=== PATIENT | male | born 1980 | race Caucasian/White ===

== ENCOUNTER 2024-07-08 10:16 | Emergency (ER) | payer MEDICAID, SELFPAY ==
[2024-07-08 10:17] VITALS: BMI 25.2
--- NOTE | 2024-07-08 11:12 | XR_ITS ---
Examination: Foot, right, 3 views Technique: AP, oblique, lateral views foot, 3 views Date and time of exam: July 08, 2024 at 1137 hours INDICATIONS: Right foot pain beginning 2 days ago no trauma FINDINGS: Mild to moderate osteoarthritis first metatarsophalangeal joint Mild osteopenia. No fracture. No cortical bone destruction Mild osteoarthritis tibiotalar and intertarsal joints Tiny plantar posterior bony calcaneal spurs IMPRESSION: Osteoarthritis as above
--- NOTE | 2024-07-08 11:13 | EDNOTE_ITS ---
<Statement entered by Romina Michael MD - 07/08/24 17:45> As co-signing physician, I was present and available for consult prn. I concur with the plan and care as documented by the midlevel provider. Lower Extremity Injury RME/HPI General Chief Complaint: Ankle/Foot Injury Stated Complaint: R FOOT PAIN Time Seen by Provider: 07/08/24 11:13 Source: patient Arrival date/time: 07/08/24 10:16 44-year-old male with no known medical history presents to the emergency room with a chief complaint of pain and tenderness to the right great toe x 2 days Mode of arrival: ambulatory Limitations: no limitations Related Data Previous Rx's ?Medication ?Instructions ?Recorded cephalexin 500 mg capsule 500 mg PO BID #14 caps 05/14 sulfamethoxazole 800 1 tab PO BID #14 tabs mg-trimethoprim 160 mg tablet Allergies Allergy/AdvReac Type Severity Reaction Status Date / Time No Known Allergies Allergy Verified 07/08/24 10:17 Review of Systems Review of Systems Systems Reviewed: All systems reviewed, normal except as documented Constitutional Constitutional: Reports system reviewed and no additional complaints, except as documented, Denies fatigue, Denies fever(s), Denies headache(s) and Denies weakness Eyes Eyes: Reports system reviewed and no additional complaints, except as documented, Denies blurry vision and Denies change in vision ENT Ears, Nose, Mouth, and Throat: Reports system reviewed and no additional complaints, except as documented, Denies otalgia, Denies headache(s), Denies nasal congestion, Denies throat swelling and Denies vertigo Cardiovascular Cardiovascular: Reports system reviewed and no additional complaints, except as documented, Denies chest pain, Denies dyspnea and Denies dyspnea on exertion Respiratory Respiratory: Reports system reviewed and no additional complaints, except as documented, Denies chest congestion, Denies cough, Denies dyspnea, Denies dyspnea on exertion and Denies wheezing Gastrointestinal Gastrointestinal: Reports system reviewed and no additional complaints, except as documented, Denies abdominal pain, Denies cramping, Denies nausea and Denies vomiting Genitourinary Genitourinary: Reports system reviewed and no additional complaints, except as documented, Denies dysuria and Denies hematuria Musculoskeletal Musculoskeletal: Reports system reviewed and no additional complaints, except as documented, Reports arthralgias, Denies back pain, Reports joint swelling and Reports limited range of motion Integumentary/Breasts Skin/Breast: Reports system reviewed and no additional complaints, except as documented and Denies wounds Neurologic Neurologic: Reports system reviewed and no additional complaints, except as documented, Denies confusion, Denies headache(s), Denies lack of coordination, Denies vertigo and Denies weakness Psychiatric Psychiatric: Reports system reviewed and no additional complaints, except as documented, Denies anxiety, Denies confusion, Denies depression, Denies paranoia, Denies suicidal ideation and Denies tactile hallucinations Endocrine Endocrine: Reports system reviewed and no additional complaints, except as documented and Denies fatigue Hematologic/Lymphatic Hematologic/Lymphatic: Reports system reviewed and no additional complaints, except as documented and Denies lymphadenopathy Allergic/Immunologic Allergic/Immunologic: Reports system reviewed and no additional complaints, except as documented, Denies throat swelling, Denies urticaria and Denies wheezing Past Medical History Past Medical History CARDIAC: Negative Cardiac Disorders or Congestive Heart Failure RESPIRATORY: Negative Chronic Obstructive Pulmonary Disease (COPD) or Asthma GENITOURINARY: Negative Renal Disease ENDOCRINE: Negative Diabetes Mellitus Type 1 or Diabetes Mellitus Type 2 HEMATOLOGIC: Negative Sickle Cell Disease Social History SMOKING STATUS: Never smoker ED Exam General Limitations: Present no limitations General appearance: Present alert and in no apparent distress Head Head exam: Present atraumatic Eye Eye exam: Present normal appearance, PERRL and EOMI ENT ENT exam: Present normal exam, normal oropharynx and mucous membranes moist Neck Neck exam: Present normal inspection, full ROM and trachea midline Chest Chest inspection: Present normal inspection and symmetric chest wall rise Respiratory Respiratory exam: Present normal lung sounds bilaterally Cardiovascular Cardiovascular exam: Present regular rate, normal rhythm and normal heart sounds Abdominal Exam Abdominal exam: Present soft and normal bowel sounds Extremities Exam Extremities exam: Present normal inspection and full ROM Expanded Lower Extremity Exam Hip/Pelvis exam: Present normal inspection Upper leg exam: Present normal inspection Knee exam: Present normal inspection Lower leg exam: Present normal inspection Ankle exam: Present normal inspection Foot/toe exam: Present tenderness and swelling Neurovascular/Tendon exam: Present normal capillary refill Gait: observed and limited by pain Back Exam Back exam: Present normal inspection and full ROM Neurological Exam Neurological exam: Present alert, oriented X3 and CN II-XII intact Psychiatric Psychiatric exam: Present normal affect and normal mood Skin Skin exam: Present warm, dry, intact and normal color Course Quality Measures none Orders Category Date Time Status XR foot comp RT min 3V Stat Exams 07/08/24 11:12 Completed CBC Stat Lab 07/08/24 11:19 Completed CMP [Comprehensive Metabolic Panel] Stat Lab 07/08/24 11:19 Completed Uric Acid Stat Lab 07/08/24 11:19 Completed Vital Signs Vital signs: Vital Signs Temperature 98.0 F 07/08/24 11:16 Pulse Rate 98 07/08/24 11:16 Respiratory Rate 19 07/08/24 11:16 Blood Pressure 127/76 07/08/24 11:16 Pulse Oximetry (%) 696 H 07/08/24 11:16 Oxygen Delivery Method Room Air 07/08/24 11:16 Extremity Injury, Lower MDM Narrative MDM Narrative:: 44-year-old male with no known medical history presents to the emergency room with a chief complaint of pain and tenderness to the right great toe x 2 days Patient is hemodynamically stable and in no apparent distress Physical examination shows pain and tenderness to the patient's right toe. There is no bruising there is no erythema there is no warmth to the touch. Patient does not have any medical history of gout. Patient denies any trauma or fall. X-ray of the right foot was completed and was negative for any acute fracture or dislocation Patient eloped prior to final disposition Patient data External records reviewed:: [facility] previous records Clinical information provided by:: patient Social determinants that could affect healthcare access:: none Patient has the following chronic illnesses:: No chronic illness How is presenting disease/condition affected by chronic disease/condition?: no chronic disease Evaluation data The following diagnostics were reviewed and interpreted by me:: lab results and radiology exam(s) Lab and/or radiology exams considered but not ordered:: Labs and radiology exams considered and ordered Interpretation Summary: X-ray of the right foot-FINDINGS: Mild to moderate osteoarthritis first metatarsophalangeal joint Mild osteopenia. No fracture. No cortical bone destruction Mild osteoarthritis tibiotalar and intertarsal joints Tiny plantar posterior bony calcaneal spurs IMPRESSION: Osteoarthritis as above Medications / Prescriptions Medications or Prescriptions considered but not ordered:: Medication not given Medication administrations:: Medication not given Consultations Consultation(s) initiated? (list below): No Diagnosis Extremity Injury, Lower Differential Diagnosis: other (Right toe fracture/right toe sprain) Most likely diagnosis given after review of the tests above:: Right toe sprain Admission Indicated Admission indicated?: not indicated Admission Request Was there a request for admission?: No Disposition Plan Disposition Plan: Discharge Discharge Attestation Discharge Attestation: The patient and all family members were given an opportunity to ask questions and understood the discharge instructions. Discharge instructions specifically effects, indications for sooner follow up or return to the emergency department, and the expected course of current diagnosis. Patient condition: Stable Discharge Plan Plan Patient Disposition: HOME (Self Care) Disposition Comment: Stable Prescriptions/Referrals Prescriptions/Med Rec: No Action sulfamethoxazole-trimethoprim 800-160 mg tablet 1 tab PO BID Qty: 14 0RF cephalexin 500 mg capsule 500 mg PO BID Qty: 14 0RF Referrals: Maximilian Sharp MD [Primary Care Provider] - In 1 week Problem List Clinical Impression: Osteoarthritis Patient/Caregiver Discharge Instructions Education Materials: Living with Osteoarthritis, ED Osteoarthritis Additional Instructions: Please follow-up with your primary care provider in the next 24 to 48 hours. Your blood work was negative for gout or any other infection in the bone. The x-ray of your foot shows arthritis of your foot. Please follow-up with your primary care provider for further management For any evidence of worsening signs or symptoms return to the emergency room immediately Print Language: Zambian Stand Alone Forms: Daniela Award Info., Patient Portal Info Letter ANA/HILARIO Supervising Physician ANA/HILARIO Supervising Physician: Dr. MICHAEL
[2024-07-08 11:16] VITALS: BP 127/76; PULSE 98; RESP 19; TEMP 36.7; O2SAT 696
[2024-07-08 11:45] LABS: Basophils % (Auto) 1 % (0-2.5); Eosinophils # (Auto) 0.2 Thou/mm3 (0.0-0.5); Eosinophils % (Auto) 3 % (0-10); Hematocrit 40.3 % (41.0-53.0); Hemoglobin 12.5 g/dL (13.5-16.0); Immature Granulocytes % (Auto) 0 % (0-0); Immature Granulocytes Auto 0.02 Thou/mm3 (0.00-0.00); Lymphocytes # (Auto) 1.6 Thou/mm3 (1.0-4.8); Lymphocytes % (Auto) 30 % (10-50); Mean Corpuscular Hemoglobin 29.3 pg (25.0-35.0); Mean Corpuscular Volume 94 fL (80-100); Monocytes # (Auto) 0.5 Thou/mm3 (0.0-0.8); Monocytes % (Auto) 10 % (0-12); Neutrophils % (Auto) 56 % (37-80); Nucleated Red Blood Cell % 0 /100 WBC (0); Platelet Count 227 Thou/mm3 (140-440); RDW Standard Deviation 45.1 fL (35.1-43.9); Red Blood Count 4.27 Miln/mm3 (4.50-5.90); White Blood Count 5.3 Thou/mm3 (3.8-10.6)
[2024-07-08 11:54] LABS: Alanine Aminotransferase 13 U/L (10-49); Albumin, Serum 4.3 gm/dL (3.5-5.0); Albumin/Globulin Ratio 1.5 (1.2-2.2); Alkaline Phosphatase 85 U/L (46-116); Anion Gap 6 (7-16); Aspartate Amino Transferase 20 U/L (0-34); BUN/Creatinine Ratio 10 Ratio (12-20); Bilirubin,Total 0.9 mg/dL (0.3-1.2); Blood Urea Nitrogen 11 mg/dL (9-23); Calcium 9.3 mg/dL (8.3-10.6); Calcium (Corrected) 9.3 mg/dL (8.5-10.1); Carbon Dioxide 28.3 mMol/L (20.0-31.0); Chloride 110 mMol/L (98-107); Creatinine (Component) 1.1 mg/dL (0.6-1.3); Estimated Creatinine Clearance 113.9 mL/min (>60); Globulin 2.8 gm/dL (2.3-3.5); Glucose 106 mg/dL (74-106); Osmolality,Calculated 286 (275-295); Potassium 4.4 mMol/L (3.4-5.1); Sodium 144 mMol/L (136-145); Total Protein 7.1 gm/dL (5.7-8.2); Uric Acid 6.1 mg/dL (3.7-9.2); eGFR > 60 See Note
--- NOTE | 2024-07-08 13:45 | PC.NURSE ---
no answer x1 at 1344. checked outside and lobby.
--- NOTE | 2024-07-08 14:26 | PC.NURSE ---
no answer x2 at [id number]
--- NOTE | 2024-07-08 15:20 | PC.NURSE ---
no answer x 3 at 1520 checked outside and lobby
== END 2024-07-08 15:21 | disposition home or self-care (01) ==
PROVIDERS: Nurse Practitioner Family; Emergency Provider Emergency Medicine; PCP Family Medicine
DX: M19.071 Primary osteoarthritis, right ankle and foot (principal)
CPT/HCPCS: 36415; 73630; 80053; 84550; 85025; 99283

== ENCOUNTER 2025-01-02 21:31 | Emergency (ER) | payer MEDICAID, SELFPAY ==
[2025-01-02 21:32] VITALS: BMI 26.4
[2025-01-02 22:23] VITALS: BP 133/80; PULSE 83; RESP 20; TEMP 36.8; O2SAT 98
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
[2025-01-02 23:30] VITALS: BP 127/81; PULSE 85; RESP 18; O2SAT 97
--- NOTE | 2025-01-02 23:46 | PC.NURSE ---
spoke with kike at [facility], patient information faxed over for review.
[2025-01-02 23:49] LABS: Basophils # (Auto) 0.0 Thou/mm3 (0.0-0.2); Basophils % (Auto) 1 % (0-2.5); Eosinophils # (Auto) 0.2 Thou/mm3 (0.0-0.5); Eosinophils % (Auto) 3 % (0-10); Hematocrit 36.3 % (41.0-53.0); Hemoglobin 11.4 g/dL (13.5-16.0); Immature Granulocytes Auto 0.01 Thou/mm3 (0.00-0.00); Lymphocytes # (Auto) 1.9 Thou/mm3 (1.0-4.8); Lymphocytes % (Auto) 32 % (10-50); Mean Corpuscular HGB Conc 31.4 g/dl (31.0-37.0); Mean Corpuscular Hemoglobin 28.8 pg (25.0-35.0); Mean Corpuscular Volume 92 fL (80-100); Monocytes # (Auto) 0.6 Thou/mm3 (0.0-0.8); Monocytes % (Auto) 10 % (0-12); Neutrophils # (Auto) 3.2 Thou/mm3 (1.8-7.7); Neutrophils % (Auto) 53 % (37-80); Nucleated Red Blood Cell # 0.00 Thou/mm3 (0.00-0.00); Nucleated Red Blood Cell % 0 /100 WBC (0); Platelet Count 210 Thou/mm3 (140-440); RDW Standard Deviation 43.8 fL (35.1-43.9); Red Blood Count 3.96 Miln/mm3 (4.50-5.90); White Blood Count 6.1 Thou/mm3 (3.8-10.6)
[2025-01-03 00:06] LABS: INR 1.0 (0.9-1.3); Partial Thromboplastin Time 24.2 Seconds (22.0-36.0); Prothrombin Time 10.4 Seconds (9.0-12.2)
--- NOTE | 2025-01-03 00:09 | PC.NURSE ---
0006,[facility],REPORT TO [phone]
[2025-01-03 00:12] LABS: Alanine Aminotransferase 18 U/L (10-49); Albumin, Serum 4.2 gm/dL (3.5-5.0); Albumin/Globulin Ratio 1.7 (1.2-2.2); Alcohol, Blood Medical < 3.0 mg/dL (0-10.0); Alkaline Phosphatase 82 U/L (46-116); Anion Gap 10 (7-16); Aspartate Amino Transferase 26 U/L (0-34); BUN/Creatinine Ratio 10 Ratio (12-20); Bilirubin,Total 1.0 mg/dL (0.3-1.2); Blood Urea Nitrogen 12 mg/dL (9-23); Calcium 8.9 mg/dL (8.3-10.6); Calcium (Corrected) 8.9 mg/dL (8.5-10.1); Carbon Dioxide 28.0 mMol/L (20.0-31.0); Chloride 106 mMol/L (98-107); Creatinine (Component) 1.2 mg/dL (0.6-1.3); Estimated Creatinine Clearance 104.4 mL/min (>60); Globulin 2.5 gm/dL (2.3-3.5); Glucose 130 mg/dL (74-106); Osmolality,Calculated 288 (275-295); Potassium 3.6 mMol/L (3.4-5.1); Sodium 144 mMol/L (136-145); Total Protein 6.7 gm/dL (5.7-8.2); eGFR > 60 See Note
[2025-01-03 00:31] VITALS: BP 120/71; PULSE 76; RESP 14; O2SAT 100
--- NOTE | 2025-01-03 01:43 | PC.NURSE ---
REPORT GIVEN TO KANE AT [facility]
== END 2025-01-03 01:46 | disposition short-term general hospital (02) ==
PROVIDERS: Physician Assistant; Emergency Provider Emergency Medicine; PCP Family Medicine
DX: S12.400A Unspecified displaced fracture of fifth cervical vertebra, initial encounter for closed fracture (principal); S09.90XA Unspecified injury of head, initial encounter; W22.8XXA Striking against or struck by other objects, initial encounter; Y93.55 Activity, bike riding
CPT/HCPCS: 36415; 70450; 72125; 80053; 80320; 85025; 85610; 85730; 99284; G0480

== ENCOUNTER 2025-01-11 07:40 | Emergency (ER) | payer MEDICAID, SELFPAY ==
[2025-01-11 07:41] VITALS: BMI 26.4
[2025-01-11 07:54] VITALS: BP 135/82; PULSE 75; RESP 17; TEMP 37; O2SAT 99
--- NOTE | 2025-01-11 08:00 | PC.NURSE ---
PT GIVEN HOMELESSNESS RESOURCE TO PT AT THIS TIME.
--- NOTE | 2025-01-11 08:13 | EDNOTE_ITS ---
<Statement entered by Romina Michael MD - 01/26/25 14:16> As co-signing physician, I was present and available for consult prn. I concur with the plan and care as documented by the midlevel provider. ED Skin Abcess FB-RME/HPI General Chief complaint: General Adult/Misc Complain Stated complaint: KEEP FALLING ASLEEP EVERY TIME I SIT DOWN Time Seen by Provider: 01/11/25 07:48 Arrival date/time: 01/11/25 07:40 This is a 44-year-old male that comes into the emergency room with complaints of a red spot to his left lateral neck. Patient also has what appears to be a chronic ulceration to his left index finger. Patient currently wearing an c- collar. Patient states he was told there were for 8 to 12 weeks. Patient has no complaints of his neck denies any new injuries. He patient is homeless. Related Data Previous Rx's ?Medication ?Instructions ?Recorded cephalexin 500 mg capsule 500 mg PO BID #14 caps 05/14 sulfamethoxazole 800 1 tab PO BID #14 tabs mg-trimethoprim 160 mg tablet ibuprofen 800 mg tablet 800 mg PO Q6H PRN pain #20 t abs 01/11/25 Allergies Allergy/AdvReac Type Severity Reaction Status Date / Time No Known Allergies Allergy Verified 01/11/25 07:47 Review of Systems Review of Systems Systems Reviewed: All systems reviewed, normal except as documented Past Medical History Past Medical History CARDIAC: Negative Cardiac Disorders or Congestive Heart Failure RESPIRATORY: Negative Chronic Obstructive Pulmonary Disease (COPD) or Asthma GENITOURINARY: Negative Renal Disease ENDOCRINE: Negative Diabetes Mellitus Type 1 or Diabetes Mellitus Type 2 HEMATOLOGIC: Negative Sickle Cell Disease Social History SMOKING STATUS: Never smoker ED Exam Narrative Physical exam: VITAL SIGNS: Reviewed. GENERAL APPEARANCE: Alert and interactive, follows commands, no acute distress HEAD AND FACE: Non-traumatic. ENT: PERRL, conjuctiva pink and clear, eyelid no trauma, Mucous membrane moist. NECK: Supple, nontender, no nuchal rigidity. CHEST: No tenderness, no crepitus, no paradoxical movement, no retractions. LUNGS: breathing even and unlabored HEART: Regular rate, cap refill less than 2 seconds ABDOMEN: Soft, nondistended, no guarding, nontender, no rebound, no masses, NEUROLOGICAL: Gross motor function intact sensory function intact, Appropriate for age. MUSCULOSKELETAL: low back nontender, full range of motion. no midline tenderness, no meningismus, no step offs EXTREMITIES: No redness no swelling no skin breakdown on bilateral foot and leg. Distal neurovascular status intact bilateral foot SKIN: Color pink, dry, patient has an area approximately 1 cm x 1 cm to his left anterior lateral neck that is erythemic and slightly raised. Surrounding tissue slightly erythemic. No fluctuance. Mild induration of the skin. Course Quality Measures none Orders Category Date Time Status Acetaminophen Tab [Tylenol ES Tab] Med 01/11/25 08:19 Discontinued 1,000 mg PO X1 ONE Doxycycline [Vibramycin] Med 01/11/25 08:19 Discontinued 100 mg PO X1 ONE Ibuprofen Tab [Motrin Tab] Med 01/11/25 08:19 Discontinued 800 mg PO X1 ONE Referral Isotope Technologist NOW 01/11/25 07:48 Completed Vital Signs Vital signs: Vital Signs Temperature 98.6 F 01/11/25 07:54 Pulse Rate 75 01/11/25 07:54 Respiratory Rate 17 01/11/25 07:54 Blood Pressure 135/82 H 01/11/25 07:54 Pulse Oximetry (%) 99 01/11/25 07:54 Oxygen Delivery Method Room Air 01/11/25 07:54 Skin / Abscess / Foreign Body MDM Narrative MDM Narrative:: I spoke to patient at length. Patient having no issues with his neck or no new injuries. Patient denies any falls. Patient complains of a chronic ulceration to his index finger and also a small area to his left anterior neck that appears to look like early cellulitis. Possible folliculitis. Will treat with doxycycline. Patient told to follow-up with his primary doctor in 1 to 2 days. [place] to emergency room symptoms change or worsen. Dragon dictation: Although this document has been carefully reviewed, there may still be some phonetic and other typographical errors. These errors are purely grammatical due to imperfections in the software program and should not be construed in any way to compromise the substance of the patient's medical care during this visit. Patient data External records reviewed:: [facility] previous records Clinical information provided by:: patient Social determinants that could affect healthcare access:: none Patient has the following chronic illnesses:: None How is presenting disease/condition affected by chronic disease/condition?: uneffected by Evaluation data The following diagnostics were reviewed and interpreted by me:: other (specify) (None) Lab and/or radiology exams considered but not ordered:: None Interpretation Summary: See note Medications / Prescriptions Medications or Prescriptions considered but not ordered:: None Medication administrations:: Medication Administration History Discontinued Medications Acetaminophen (Acetaminophen 500 Mg Tablet) 1,000 mg PO X1 ONE Stop: 01/11/25 08:20 Last Admin: 01/11/25 08:44 Dose: 1,000 mg Documented By: RADHA Doxycycline Hyclate (Doxycycline 100 Mg Tablet) 100 mg PO X1 ONE Stop: 01/11/25 08:20 Last Admin: 01/11/25 08:44 Dose: 100 mg Documented By: RADHA Ibuprofen (Ibuprofen Tab 400 Mg Tablet) 800 mg PO X1 ONE Stop: 01/11/25 08:20 Last Admin: 01/11/25 08:44 Dose: 800 mg Documented By: RADHA See [facility] Consultations Consultation(s) initiated? (list below): No Diagnosis Skin/Abscess Differential Diagnosis: abscess of skin or subcutaneous tissue, allergic reaction to drug, cellulitis and insect bites Most likely diagnosis given after review of the tests above:: Cellulitis Admission Indicated Admission indicated?: not indicated Admission Request Was there a request for admission?: No Disposition Plan Disposition Plan: Discharge Discharge Attestation Discharge Attestation: The patient and all family members were given an opportunity to ask questions and understood the discharge instructions. Discharge instructions specifically effects, indications for sooner follow up or return to the emergency department, and the expected course of current diagnosis. Patient condition: Stable Discharge Plan Plan Patient Disposition: HOME (Self Care) Patient condition on transfer: Stable Prescriptions/Referrals Prescriptions/Med Rec: New ibuprofen 800 mg tablet 800 mg PO Q6H PRN (Reason: pain) Qty: 20 0RF No Action sulfamethoxazole-trimethoprim 800-160 mg tablet 1 tab PO BID Qty: 14 0RF cephalexin 500 mg capsule 500 mg PO BID Qty: 14 0RF Referrals: No Primary/Family,Physician [Primary Care Provider] - In 1 week Problem List Clinical Impression: Cellulitis Patient/Caregiver Discharge Instructions Discharge Activity: activity as tolerated Education Materials: ED Cellulitis Additional Instructions: Follow up with primary provider in 1-2 days. Come back to ED if symptoms change or worsen Print Language: Malian Stand Alone Forms: Daniela Award Info., Patient Portal Info Letter PA/RIG BUILDER Supervising Physician PA/RIG BUILDER Supervising Physician: thi
[2025-01-11] MEDS: ACETAMINOPHEN 500 MG TABLET 1000 MG PO (08:44)
[2025-01-11] MEDS: DOXYCYCLINE 100 MG TABLET PO (08:44)
[2025-01-11] MEDS: IBUPROFEN TAB 400 MG TABLET 800 MG PO (08:44)
== END 2025-01-11 09:00 | disposition home or self-care (01) ==
PROVIDERS: Emergency Provider Emergency Medicine
DX: L03.012 Cellulitis of left finger (principal)
CPT/HCPCS: 99283; A9270

== ENCOUNTER 2025-02-04 18:40 | Emergency (ER) | payer MEDICAID, SELFPAY ==
[2025-02-04 19:09] VITALS: BP 142/83; PULSE 88; RESP 18; TEMP 36.7; O2SAT 96
--- NOTE | 2025-02-04 19:14 | PD.EDNECK ---
ED Neck Injury Pain RME/HPI General Chief Complaint: Neck Pain/Injury Stated Complaint: REQUESTING BRACE, WAS SEEN 1WK AGO, LOST HIS BRACE Time Seen by Provider: 02/04/25 19:10 Arrival date/time: 02/04/25 18:40 44M with history of drug use presents to ED with needing neck brace after he lost it. Patient was here several weeks ago with diagnosis of cervial fx. Patient was transferred to [facility] initially, where an MRI was done, and patient was given a neck brace and discharged. No surgical intervention was done. Patient has no current complaints. Limitations: no limitations Related Data Previous Rx's ?Medication ?Instructions ?Recorded cephalexin 500 mg capsule 500 mg PO BID #14 caps 05/14/23 sulfamethoxazole 800 1 tab PO BID #14 tabs 05/14/23 mg-trimethoprim 160 mg tablet ibuprofen 800 mg tablet 800 mg PO Q6H PRN pain #20 tabs 01/11/25 Allergies Allergy/AdvReac Type Severity Reaction Status Date / Time No Known Allergies Allergy Verified 02/04/25 18:44 Review of Systems Review of Systems Systems Reviewed: All systems reviewed, normal except as documented Past Medical History Past Medical History CARDIAC: Negative Cardiac Disorders or Congestive Heart Failure RESPIRATORY: Negative Chronic Obstructive Pulmonary Disease (COPD) or Asthma GENITOURINARY: Negative Renal Disease ENDOCRINE: Negative Diabetes Mellitus Type 1 or Diabetes Mellitus Type 2 HEMATOLOGIC: Negative Sickle Cell Disease Social History SMOKING STATUS: Never smoker ED Exam General Limitations: Present no limitations General appearance: Present alert and in no apparent distress Head Head exam: Present atraumatic Chest Chest inspection: Present normal inspection and symmetric chest wall rise Neurological Exam Neurological exam: Present alert and oriented X3 Psychiatric Psychiatric exam: Present normal affect and normal mood Skin Skin exam: Present warm, dry, intact and normal color Course Quality Measures none Orders Category Date Time Status Rigid cervical collar X1 Care 02/04/25 19:05 Active Vital Signs Vital signs: Vital Signs Temperature 98.0 F 02/04/25 19:09 Pulse Rate 88 02/04/25 19:09 Respiratory Rate 18 02/04/25 19:09 Blood Pressure 142/83 H 02/04/25 19:09 Pulse Oximetry (%) 96 02/04/25 19:09 Oxygen Delivery Method Room Air 02/04/25 19:09 O2 at 96% on RA and WNLs Neck Pain MDM Narrative MDM Narrative:: 44M with history of drug use presents to ED with needing neck brace after he lost it. Patient was here several weeks ago with diagnosis of cervial fx. Patient was transferred to [facility] initially, where an MRI was done, and patient was given a neck brace and discharged. No surgical intervention was done. Patient has no current complaints. Physical exam reveals normal speech and gait. ROM of extremities normal. Patient is afebrile, calm, and alert. Brace and business and financial counsel given. Patient data External records reviewed:: [facility] previous records Clinical information provided by:: patient Social determinants that could affect healthcare access:: substance use Patient has the following chronic illnesses:: drug use How is presenting disease/condition affected by chronic disease/condition?: exacerbated by Evaluation data The following diagnostics were reviewed and interpreted by me:: other (specify) (none) Lab and/or radiology exams considered but not ordered:: not ordered Interpretation Summary: n/a Medications / Prescriptions Medications or Prescriptions considered but not ordered:: not ordered Medication administrations:: n/a Consultations Consultation(s) initiated? (list below): No Diagnosis Neck Differential Diagnosis: disc disorder of cervical region, whiplash injury to neck, closed subluxation of cervical spine, fracture of cervical spine without lesion of spinal cord, cervical radiculopathy, vertebral artery dissection, torticollis, cervical spondylosis and strain of neck muscle Most likely diagnosis given after review of the tests above:: cervical fx Admission Indicated Admission indicated?: not indicated Admission Request Was there a request for admission?: No Disposition Plan Disposition Plan: Discharge Discharge Attestation Discharge Attestation: The patient and all family members were given an opportunity to ask questions and understood the discharge instructions. Discharge instructions specifically effects, indications for sooner follow up or return to the emergency department, and the expected course of current diagnosis. Patient condition: Stable Discharge Plan Plan Patient Disposition: HOME (Self Care) Discharge Disposition comment: Stable Prescriptions/Referrals Prescriptions/Med Rec: No Action sulfamethoxazole-trimethoprim 800-160 mg tablet 1 tab PO BID Qty: 14 0RF cephalexin 500 mg capsule 500 mg PO BID Qty: 14 0RF ibuprofen 800 mg tablet 800 mg PO Q6H PRN (Reason: pain) Qty: 20 0RF Problem List Clinical Impression: Fracture of cervical spine without lesion of spinal cord Patient/Caregiver Discharge Instructions Education Materials: Fx Neck Spine Additional Instructions: Please follow-up with PCP within 24-48 hours and return immediately if symptoms worsen. Follow-up as instructed with neurosurgeon/PCP. Print Language: Norwegian Stand Alone Forms: Patient Portal Info Letter PA/CHART COLLECTOR Supervising Physician PA/CHART COLLECTOR Supervising Physician: Dr. Macias
== END 2025-02-04 19:15 | disposition home or self-care (01) ==
LOC: SERX 19:36
PROVIDERS: Emergency Provider Emergency Medicine
DX: S12.9XXA Fracture of neck, unspecified, initial encounter (principal); X58.XXXA Exposure to other specified factors, initial encounter
CPT/HCPCS: 99281

== ENCOUNTER 2025-03-20 19:31 | Emergency (ER) | payer MEDICAID, SELFPAY ==
[2025-03-20 19:32] VITALS: BMI 25.8
[2025-03-20 20:17] VITALS: BP 137/86; PULSE 83; RESP 18; TEMP 36.7; O2SAT 98
--- NOTE | 2025-03-20 20:27 | PD.EDSKIN ---
ED Skin Abcess FB-RME/HPI General Chief complaint: General Adult/Misc Complain Stated complaint: SPIDER BITE R LEG Time Seen by Provider: 03/20/25 20:22 Arrival date/time: 03/20/25 19:31 45M with history of drug use presents to ED with R insect/spider bite. It is painful, not itchy. Limitations: no limitations Related Data Previous Rx's ?Medication ?Instructions ?Recorded cephalexin 500 mg capsule 500 mg PO BID #14 caps 05/14/23 sulfamethoxazole 800 1 tab PO BID #14 tabs 05/14/23 mg-trimethoprim 160 mg tablet ibuprofen 800 mg tablet 800 mg PO Q6H PRN pain #20 tabs 01/11/25 sulfamethoxazole 800 1 tab PO BID 5 days #10 tabs 03/20/25 mg-trimethoprim 160 mg tablet (Bactrim DS) Allergies Allergy/AdvReac Type Severity Reaction Status Date / Time No Known Allergies Allergy Verified 03/20/25 19:36 Review of Systems Review of Systems Systems Reviewed: All systems reviewed, normal except as documented Integumentary/Breasts Skin/Breast: Reports as per HPI and Reports skin pain Past Medical History Past Medical History CARDIAC: Negative Cardiac Disorders or Congestive Heart Failure RESPIRATORY: Negative Chronic Obstructive Pulmonary Disease (COPD) or Asthma GENITOURINARY: Negative Renal Disease ENDOCRINE: Negative Diabetes Mellitus Type 1 or Diabetes Mellitus Type 2 HEMATOLOGIC: Negative Sickle Cell Disease Social History SMOKING STATUS: Never smoker ED Exam General Limitations: Present no limitations General appearance: Present alert and in no apparent distress Head Head exam: Present atraumatic Neck Neck exam: Present normal inspection, full ROM and trachea midline Chest Chest inspection: Present normal inspection and symmetric chest wall rise Extremities Exam Extremities exam: Present full ROM Expanded Lower Extremity Exam Upper leg exam: Present full ROM, tenderness, erythema and other (R thigh bite miryam with some discharge) Neurological Exam Neurological exam: Present alert and oriented X3 Psychiatric Psychiatric exam: Present normal affect and normal mood Skin Skin exam: Present warm, dry, intact and normal color Course Quality Measures none Orders Category Date Time Status Trimethoprim/Sulfa 160/800 Ds [Bactrim Ds] Med 03/20/25 20:22 Discontinued 1 tab PO X1 ONE Vital Signs Vital signs: Vital Signs Temperature 98.1 F 03/20/25 20:17 Pulse Rate 83 03/20/25 20:17 Respiratory Rate 18 03/20/25 20:17 Blood Pressure 137/86 H 03/20/25 20:17 Pulse Oximetry (%) 98 03/20/25 20:17 Oxygen Delivery Method Room Air 03/20/25 20:17 O2 at 98% on RA and WNLs Skin / Abscess / Foreign Body MDM Narrative MDM Narrative:: 45M with history of drug use presents to ED with R insect/spider bite. It is painful, not itchy. Physical exam reveals bite miryam with some discharge on R medial lower thigh area. Patient is afebrile, calm, and alert. Meds and budget counselor given. Patient data External records reviewed:: [facility] previous records Clinical information provided by:: patient Social determinants that could affect healthcare access:: substance use Patient has the following chronic illnesses:: drug use How is presenting disease/condition affected by chronic disease/condition?: exacerbated by Evaluation data The following diagnostics were reviewed and interpreted by me:: other (specify) (none) Lab and/or radiology exams considered but not ordered:: not ordered Interpretation Summary: n/a Medications / Prescriptions Medications or Prescriptions considered but not ordered:: ordered Medication administrations:: Medication Administration History Discontinued Medications Trimethoprim/Sulfamethoxazole (Trimethoprim/Sulfa 160/800 Ds Tablet) 1 tab PO X1 ONE Stop: 03/20/25 20:23 above Consultations Consultation(s) initiated? (list below): No Diagnosis Skin/Abscess Differential Diagnosis: abscess of skin or subcutaneous tissue, viral exanthem, dermatophytosis, urticaria, herpes zoster, allergic reaction to drug, cellulitis, eczema, insect bites, impetigo, contact dermatitis and other (spider bite) Most likely diagnosis given after review of the tests above:: spider bite Admission Indicated Admission indicated?: not indicated Admission Request Was there a request for admission?: No Disposition Plan Disposition Plan: Discharge Discharge Attestation Discharge Attestation: The patient and all family members were given an opportunity to ask questions and understood the discharge instructions. Discharge instructions specifically effects, indications for sooner follow up or return to the emergency department, and the expected course of current diagnosis. Patient condition: Stable Discharge Plan Plan Patient Disposition: HOME (Self Care) Discharge Disposition comment: Stable Prescriptions/Referrals Prescriptions/Med Rec: New sulfamethoxazole-trimethoprim [Bactrim DS] 800-160 mg tablet 1 tab PO BID 5 Days Qty: 10 0RF No Action sulfamethoxazole-trimethoprim 800-160 mg tablet 1 tab PO BID Qty: 14 0RF cephalexin 500 mg capsule 500 mg PO BID Qty: 14 0RF ibuprofen 800 mg tablet 800 mg PO Q6H PRN (Reason: pain) Qty: 20 0RF Problem List Clinical Impression: Spider bite Patient/Caregiver Discharge Instructions Education Materials: ED Bite Spider Non Poisonous Additional Instructions: Please follow-up with PCP within 24-48 hours and return immediately if symptoms worsen. Print Language: German Stand Alone Forms: Patient Portal Info Letter PA/COMMERCIAL PRINT SALESMAN Supervising Physician PA/COMMERCIAL PRINT SALESMAN Supervising Physician: Dr. Macias
[2025-03-20] MEDS: TRIMETHOPRIM/SULFA 160/800 DS TABLET 1 TAB PO (20:41)
== END 2025-03-20 21:07 | disposition home or self-care (01) ==
LOC: SERX 20:56
PROVIDERS: Emergency Provider Physician Assistant; PCP Family Medicine
DX: T63.301A Toxic effect of unspecified spider venom, accidental (unintentional), initial encounter (principal)
CPT/HCPCS: 99281; A9270

== ENCOUNTER 2025-03-24 13:06 | Emergency (ER) | payer MEDICAID, SELFPAY ==
[2025-03-24 13:36] VITALS: BP 138/78; PULSE 90; RESP 20; TEMP 36.5; O2SAT 96
--- NOTE | 2025-03-24 13:40 | PD.EDANIML ---
ED Animal Bite RME/HPI General Chief Complaint: Animal Bite Stated Complaint: SPIDER BITE R) LEG, ATB NOT WORKING Time Seen by Provider: 03/24/25 13:17 Source: patient Arrival date/time: 03/24/25 13:06 45-year-old male with no known medical history presents to the emergency room with a chief complaint of a spider bite to his right leg x 3 days Mode of arrival: ambulatory Limitations: no limitations Related Data Previous Rx's ?Medication ?Instructions ?Recorded cephalexin 500 mg capsule 500 mg PO BID #14 caps 05/14/23 sulfamethoxazole 800 1 tab PO BID #14 tabs 05/14/23 mg-trimethoprim 160 mg tablet ibuprofen 800 mg tablet 800 mg PO Q6H PRN pain #20 tabs 01/11/25 sulfamethoxazole 800 1 tab PO BID 5 days #10 tabs 03/20/25 mg-trimethoprim 160 mg tablet (Bactrim DS) Allergies Allergy/AdvReac Type Severity Reaction Status Date / Time No Known Allergies Allergy Verified 03/24/25 13:10 Review of Systems Review of Systems Systems Reviewed: All systems reviewed, normal except as documented Constitutional Constitutional: Reports system reviewed and no additional complaints, except as documented, Denies fatigue, Denies fever(s), Denies headache(s) and Denies weakness Eyes Eyes: Reports system reviewed and no additional complaints, except as documented, Denies blurry vision and Denies change in vision ENT Ears, Nose, Mouth, and Throat: Reports system reviewed and no additional complaints, except as documented, Denies otalgia, Denies headache(s), Denies nasal congestion, Denies throat swelling and Denies vertigo Cardiovascular Cardiovascular: Reports system reviewed and no additional complaints, except as documented, Denies chest pain, Denies dyspnea and Denies dyspnea on exertion Respiratory Respiratory: Reports system reviewed and no additional complaints, except as documented, Denies chest congestion, Denies cough, Denies dyspnea, Denies dyspnea on exertion and Denies wheezing Gastrointestinal Gastrointestinal: Reports system reviewed and no additional complaints, except as documented, Denies abdominal pain, Denies cramping, Denies nausea and Denies vomiting Genitourinary Genitourinary: Reports system reviewed and no additional complaints, except as documented, Denies dysuria and Denies hematuria Musculoskeletal Musculoskeletal: Reports system reviewed and no additional complaints, except as documented and Denies back pain Integumentary/Breasts Skin/Breast: Reports system reviewed and no additional complaints, except as documented, Reports pruritus and Reports wounds Neurologic Neurologic: Reports system reviewed and no additional complaints, except as documented, Denies confusion, Denies headache(s), Denies lack of coordination, Denies vertigo and Denies weakness Psychiatric Psychiatric: Reports system reviewed and no additional complaints, except as documented, Denies anxiety, Denies confusion, Denies depression, Denies paranoia, Denies suicidal ideation and Denies tactile hallucinations Endocrine Endocrine: Reports system reviewed and no additional complaints, except as documented and Denies fatigue Hematologic/Lymphatic Hematologic/Lymphatic: Reports system reviewed and no additional complaints, except as documented and Denies lymphadenopathy Allergic/Immunologic Allergic/Immunologic: Reports system reviewed and no additional complaints, except as documented, Denies throat swelling, Denies urticaria and Denies wheezing Past Medical History Past Medical History CARDIAC: Negative Cardiac Disorders or Congestive Heart Failure RESPIRATORY: Negative Chronic Obstructive Pulmonary Disease (COPD) or Asthma GENITOURINARY: Negative Renal Disease ENDOCRINE: Negative Diabetes Mellitus Type 1 or Diabetes Mellitus Type 2 HEMATOLOGIC: Negative Sickle Cell Disease Social History SMOKING STATUS: Current every day smoker ED Exam General Limitations: Present no limitations General appearance: Present alert and in no apparent distress Head Head exam: Present atraumatic Eye Eye exam: Present normal appearance, PERRL and EOMI ENT ENT exam: Present normal exam, normal oropharynx and mucous membranes moist Neck Neck exam: Present normal inspection, full ROM and trachea midline Chest Chest inspection: Present normal inspection and symmetric chest wall rise Respiratory Respiratory exam: Present normal lung sounds bilaterally Cardiovascular Cardiovascular exam: Present regular rate, normal rhythm and normal heart sounds Abdominal Exam Abdominal exam: Present soft and normal bowel sounds Extremities Exam Extremities exam: Present normal inspection and full ROM Expanded Lower Extremity Exam Hip/Pelvis exam: Present normal inspection Upper leg exam: Present normal inspection Knee exam: Present normal inspection, tenderness and erythema Lower leg exam: Present normal inspection Ankle exam: Present normal inspection Foot/toe exam: Present normal inspection Back Exam Back exam: Present normal inspection and full ROM Neurological Exam Neurological exam: Present alert, oriented X3 and CN II-XII intact Psychiatric Psychiatric exam: Present normal affect and normal mood Skin Skin exam: Present warm, dry, intact and normal color Expanded Skin Exam Body image:  1. 1 cm area of erythema and mild swelling. The area is consistent with a small abscess behind the right knee. The patient is currently taking antibiotics and at this time the abscess is not ready to be I&D Course Quality Measures none Orders Category Date Time Status Clindamycin Vial [Cleocin vial] Med 03/24/25 13:38 Discontinued 600 mg IM X1 ONE Vital Signs Vital signs: Vital Signs Temperature 97.7 F 03/24/25 13:36 Pulse Rate 90 03/24/25 13:36 Respiratory Rate 20 03/24/25 13:36 Blood Pressure 138/78 H 03/24/25 13:36 Pulse Oximetry (%) 96 03/24/25 13:36 Oxygen Delivery Method Room Air 03/24/25 13:36 Animal Bite MDM Narrative MDM Narrative:: 45-year-old male with no known medical history presents to the emergency room with a chief complaint of a spider bite to his right leg x 3 days Patient is hemodynamically stable and in no apparent distress Physical examination shows a 1 cm area behind the right knee of erythema. Patient states he is taking antibiotics for this spider bite. At this time the area does not need to be I&D. I spoke to the patient and told him to keep taking his oral antibiotics and to return to the emergency room for any evidence of worsening signs or symptoms Patient was discharged and educated to follow-up with primary care provider in the next 24 to 48 hours and return to the emergency room for any evidence of worsening signs or symptoms Patient data External records reviewed:: [facility] previous records Clinical information provided by:: patient Social determinants that could affect healthcare access:: none Patient has the following chronic illnesses:: No chronic illness How is presenting disease/condition affected by chronic disease/condition?: no chronic disease Evaluation data The following diagnostics were reviewed and interpreted by me:: lab results and radiology exam(s) Lab and/or radiology exams considered but not ordered:: Labs radiology exams considered and ordered Interpretation Summary: N/A Medications / Prescriptions Medications or Prescriptions considered but not ordered:: Medication given Medication administrations:: Medication Administration History Discontinued Medications Clindamycin Phosphate (Clindamycin Phos Inj 150 Mg/Ml Vial 6 Ml) 600 mg IM X1 ONE Stop: 03/24/25 13:39 Last Admin: 03/24/25 14:00 Dose: 600 mg Documented By: OA Medication given Consultations Consultation(s) initiated? (list below): No Diagnosis Differential diagnosis animal bite: bite by animal, cat bite and dog bite Most likely diagnosis given after review of the tests above:: Dog bite Admission Indicated Admission indicated?: not indicated Admission Request Was there a request for admission?: No Disposition Plan Disposition Plan: Discharge Discharge Attestation Discharge Attestation: The patient and all family members were given an opportunity to ask questions and understood the discharge instructions. Discharge instructions specifically effects, indications for sooner follow up or return to the emergency department, and the expected course of current diagnosis. Patient condition: Stable Discharge Plan Plan Patient Disposition: HOME (Self Care) Discharge Disposition comment: Stable Prescriptions/Referrals Prescriptions/Med Rec: No Action sulfamethoxazole-trimethoprim 800-160 mg tablet 1 tab PO BID Qty: 14 0RF cephalexin 500 mg capsule 500 mg PO BID Qty: 14 0RF ibuprofen 800 mg tablet 800 mg PO Q6H PRN (Reason: pain) Qty: 20 0RF sulfamethoxazole-trimethoprim [Bactrim DS] 800-160 mg tablet 1 tab PO BID 5 Days Qty: 10 0RF Problem List Clinical Impression: Spider bite Patient/Caregiver Discharge Instructions Additional Instructions: Please follow-up with your primary care provider in the next 24 to 48 hours You have been prescribed antibiotics for the spider bite. Please continue to take your antibiotics as prescribed At this time there is no indication to do an incision and drainage as the infection seems controlled. For any evidence of worsening signs or symptoms including warmth, redness, tenderness, or increasing in size please return to the emergency room immediately Print Language: Tajik Stand Alone Forms: Daniela Award Info., Work/School Release, Patient Portal Info Letter
[2025-03-24] MEDS: CLINDAMYCIN PHOS INJ 150 MG/ML VIAL 6 ML 600 MG IM (14:00)
== END 2025-03-24 14:01 | disposition home or self-care (01) ==
LOC: SERX 14:14
PROVIDERS: Emergency Provider Nurse Practitioner Family
DX: T63.301A Toxic effect of unspecified spider venom, accidental (unintentional), initial encounter (principal); L53.0 Toxic erythema
CPT/HCPCS: 96372; 99282; J0736